=== PATIENT | female | born 1945 | race Caucasian/White ===

== ENCOUNTER 2017-07-18 09:56 | Emergency (ER) | payer MEDICARE, OTHER ==
[~2017-07-18] VITALS: Ht 165.1 cm; Wt 100.2 kg
[~2017-07-18 09:56] MED LIST: ALBU90OI6 INH; ATEN50; ATEN50 PO; BUDE6HFA; BUTONI; CONEST.9; DEXA4 PO; HYDCHL25 PO; Klor-Con 1010 MEQ PO; OMEP20ER; OMEP20ER PO; OXYC5; PARO20 PO; PREG25 PO; PROM25 PO; Prinivil10 MG PO; RANI150; SIMV10; TIOT18; Zofran8 MG PO
[2017-07-18 11:01] LABS: Hematocrit 46.5 % (33.0-51.0); Hemoglobin 15.5 g/dL (11.5-16.0); Mean Corpuscular HGB 30.8 pg (26.0-34.0); Mean Corpuscular HGB Conc 33.3 g/dL (31.5-36.5); Mean Corpuscular Volume 92 fL (80-100); Mean Platelet Volume 9.9 fL (9.1-12.4); Platelet Count 204 K/mm3 (150-400); RDW Coefficient Variation 12.4 % (11.7-14.2); RDW Standard Deviation 42.2 fL (35.1-46.3); Red Blood Cell Count 5.04 M/mm3 (3.80-5.20); White Blood Cell Count 4.24 K/mm3 (4.00-11.30)
[2017-07-18 11:13] LABS: Bun/Creatinine Ratio 19.1 (12.0-20.0); Calcium, Blood 8.8 mg/dL (8.5-10.1); Potassium, Blood 3.1 mmol/L (3.5-5.5)
[2017-07-18] MEDS ORDERED: Zithromax250 MG PO (11:40)
[2017-07-18] MEDS ORDERED: Prednisone20 MG PO (11:40)
[2017-07-18 11:41] LABS: BAND PERCENT MAN 1 % (0-8); BASOPHILS ABSOLUTE MAN 0.04 K/mm3 (0.00-0.23); BASOPHILS PERCENT MAN 1 % (0-2); EOSINOPHILS PERCENT MAN 0 % (0-6); LYMPHOCYTES % ATYPICAL MANUAL 3 % (0-0); LYMPHOCYTES ABSOLUTE MAN 1.06 K/mm3 (0.84-5.20); LYMPHOCYTES PERCENT MAN 22 % (21-46); MONOCYTES ABSOLUTE MAN 0.29 K/mm3 (0.16-1.47); MONOCYTES PERCENT MAN 7 % (4-13); NEUTROPHILS ABSOLUTE MAN 2.84 K/mm3 (1.96-9.15); SEG NEUTROPHILS PERCENT MAN 66 % (41-73); TOTAL CELLS COUNTED 100
== END 2017-07-18 12:18 | disposition home or self-care (01) ==
LOC: ER 09:56
PROVIDERS: Emergency Medicine
DX: J40 Bronchitis, not specified as acute or chronic (principal); I10 Essential (primary) hypertension; Z88.5 Allergy status to narcotic agent; Z79.899 Other long term (current) drug therapy
CPT/HCPCS: 36415; 71046; 80048; 85025; 93005; 93010; 94640; 96374; 99283; J2930

== ENCOUNTER → 2017-07-23 | Outpatient (CLI) | payer MEDICARE, OTHER ==
[~2017-07-23] MED LIST changes: +Prednisone20 MG PO; +Zithromax250 MG PO
[2017-07-23 17:38] LABS: U Amphetamine Screen Not Detected; U Barbituate Screen Not Detected; U Benzodiazapine Screen Not Detected; U Buprenorphine Screen Not Detected; U Cannabinoids Screen Not Detected; U Cocaine Screen Not Detected; U Methadone Screen Not Detected; U Methamphetamine Screen Not Detected; U Opiates Screen Not Detected; U Oxycodone Screen DETECTED; U Phencyclidine Screen Not Detected; U Propoxyphene Screen Not Detected
== END ==
LOC: LAB SHORT 17:14 → LAB 17:14
PROVIDERS: Internal Medicine
DX: Z51.81 Encounter for therapeutic drug level monitoring (principal); Z79.899 Other long term (current) drug therapy
CPT/HCPCS: G0480

== ENCOUNTER → 2018-01-22 | Outpatient (CLI) | payer MEDICARE, OTHER ==
[2018-01-22 18:42] LABS: U Amphetamine Screen Not Detected; U Barbituate Screen Not Detected; U Benzodiazapine Screen Not Detected; U Buprenorphine Screen Not Detected; U Cannabinoids Screen Not Detected; U Cocaine Screen Not Detected; U Methadone Screen Not Detected; U Methamphetamine Screen Not Detected; U Opiates Screen Not Detected; U Oxycodone Screen Not Detected; U Phencyclidine Screen Not Detected; U Propoxyphene Screen Not Detected
== END | disposition home or self-care (01) ==
LOC: LAB SHORT 14:15
PROVIDERS: Internal Medicine
DX: Z51.81 Encounter for therapeutic drug level monitoring (principal); Z79.899 Other long term (current) drug therapy

== ENCOUNTER 2018-09-24 10:13 | Day surgery (SDC) | payer MEDICARE, OTHER ==
[~2018-09-24] VITALS: Ht 165.1 cm; Wt 94.1 kg
[~2018-09-24 10:13] MED LIST changes: +ALBU90OI61
[2018-09-24] MEDS ORDERED: POTCHL10ER (11:02)
[2018-09-24] MEDS ORDERED: ALPR1 (11:03)
[2018-09-24] MEDS ORDERED: FURO40 (11:03)
[2018-09-24] MEDS ORDERED: ATEN25 (11:04)
[2018-09-24] MEDS ORDERED: PANT40 (11:04)
[2018-09-24] MEDS ORDERED: THERA1 EACH (11:05)
[2018-09-24] MEDS ORDERED: CHOL10002 (11:05)
[2018-09-24] MEDS ORDERED: TIOT18 (11:05)
[2018-09-24] MEDS ORDERED: BUDE6HFA (11:05)
--- NOTE | 2018-09-24 13:03 | NUR ---
09/24/18 Wisam Gonzales A YELLOW UPPER ENDOSCOPE WAS USED #[id number]. BITE BLOCK WAS PLACED IN PT'S MOUTH, AND THE PT WAS MONITORED. [address] LOPEZ DURING THE PROCEDURE AND WAS DISCONTINUED AT THE END.
== END 2018-09-24 13:33 | disposition home or self-care (01) ==
LOC: ORSCSDS 10:13
PROVIDERS: Surgery
PROC: 0JPT0WZ Removal of Totally Implantable Vascular Access Device from Trunk Subcutaneous Tissue and Fascia, Open Approach (ICD-10-PCS; principal; 2018-09-24 12:00)
PROC: 0DB58ZX Excision of Esophagus, Via Natural or Artificial Opening Endoscopic, Diagnostic (ICD-10-PCS; principal; 2018-09-24 12:00)
PROC: 0DB68ZX Excision of Stomach, Via Natural or Artificial Opening Endoscopic, Diagnostic (ICD-10-PCS; principal; 2018-09-24 12:00)
DX: K22.70 Barrett's esophagus without dysplasia (principal); Z45.2 Encounter for adjustment and management of vascular access device; I10 Essential (primary) hypertension; J44.9 Chronic obstructive pulmonary disease, unspecified; Z99.81 Dependence on supplemental oxygen; K21.9 Gastro-esophageal reflux disease without esophagitis; M79.7 Fibromyalgia; Z79.899 Other long term (current) drug therapy
CPT/HCPCS: 88305; 88342; J0690; J2250; J2704; J3010; J7120

== ENCOUNTER → 2019-04-16 | Outpatient (CLI) | payer MEDICARE, OTHER ==
[~2019-04-16] MED LIST changes: +ALPR1; +ATEN25; +CHOL10002; +FURO40; +PANT40; +POTCHL10ER; +THERA1 EACH
[2019-04-16 14:04] LABS: U Amphetamine Screen Not Detected; U Barbituate Screen Not Detected; U Benzodiazapine Screen Not Detected; U Buprenorphine Screen Not Detected; U Cannabinoids Screen Not Detected; U Cocaine Screen Not Detected; U Methadone Screen Not Detected; U Methamphetamine Screen Not Detected; U Opiates Screen DETECTED; U Oxycodone Screen Not Detected; U Phencyclidine Screen Not Detected; U Propoxyphene Screen Not Detected
== END ==
LOC: LAB SHORT 12:40 → LAB 12:40
PROVIDERS: Nurse Practitioner Family
DX: R30.0 Dysuria (principal); Z79.899 Other long term (current) drug therapy
CPT/HCPCS: 87077; 87086; 87186

== ENCOUNTER → 2020-02-02 | Outpatient (CLI) | payer MEDICARE, OTHER | END | disposition home or self-care (01) | LOC: LAB 13:30 → LAB SHORT 13:30 | DX: N30.01 Acute cystitis with hematuria (principal) | CPT/HCPCS: 87086 ==

== ENCOUNTER → 2020-08-04 | Outpatient (CLI) | payer MEDICARE, OTHER | END | disposition home or self-care (01) | LOC: LAB SHORT 18:50 → LAB 18:50 | DX: N30.00 Acute cystitis without hematuria (principal) | CPT/HCPCS: 87086 ==

== ENCOUNTER 2022-05-26 07:18 | Inpatient (IN) | payer MEDICARE, OTHER ==
[~2022-05-26] VITALS: Ht 165.1 cm; Wt 114.8 kg
[~2022-05-26 07:18] MED LIST changes: -FURO40; +FURO40 PO; -PANT40; +PANT40 PO
[2022-05-26] MEDS ORDERED: [UNRECOGNIZED DRUG - OTHER] (07:33)
[2022-05-26] MEDS ORDERED: BREZTRI AEROS10.7 GM INH (07:38)
[2022-05-26] MEDS ORDERED: Flovent 44 mc10.6 GM INH (07:40)
[2022-05-26 08:38] LABS: BASOPHILS ABSOLUTE AUTO 0.03 K/mm3 (0.00-0.23); BASOPHILS PERCENT AUTO 0 % (0-2); EOSINOPHILS ABSOLUTE AUTO 0.14 K/mm3 (0.00-0.68); EOSINOPHILS PERCENT AUTO 2 % (0-6); Hematocrit 42.5 % (33.0-51.0); Hemoglobin 13.5 g/dL (11.5-16.0); IMMATURE GRAN ABSOLUTE AUTO 0.04 K/mm3 (0.00-0.10); IMMATURE GRAN PERCENT AUTO 0 % (0-1); LYMPHOCYTES PERCENT AUTO 15 % (21-46); MONOCYTES ABSOLUTE AUTO 0.42 K/mm3 (0.16-1.47); MONOCYTES PERCENT AUTO 5 % (4-13); Mean Corpuscular HGB 30.1 pg (26.0-34.0); Mean Corpuscular HGB Conc 31.8 g/dL (31.5-36.5); Mean Corpuscular Volume 95 fL (80-100); Mean Platelet Volume 10.1 fL (9.1-12.4); NEUTROPHILS ABSOLUTE AUTO 7.08 K/mm3 (1.96-9.15); NEUTROPHILS PERCENT AUTO 78 % (41-73); Platelet Count 292 K/mm3 (150-400); RDW Coefficient Variation 12.3 % (11.7-14.2); Red Blood Cell Count 4.48 M/mm3 (3.80-5.20); White Blood Cell Count 9.11 K/mm3 (4.00-11.30)
[2022-05-26 08:56] LABS: Albumin, Blood 3.2 g/dL (3.4-5.0); Albumin/Globulin Ratio 0.7 (0.8-1.8); Bilirubin, Total 0.4 mg/dL (0.1-1.0); Bun/Creatinine Ratio 22.3 (12.0-20.0); Calcium, Blood 9.5 mg/dL (8.5-10.1); Creatinine, Blood 0.94 mg/dL (0.40-1.00); Globulin, Blood 4.3 g/dL (2.2-4.0); Potassium, Blood 3.8 mmol/L (3.5-5.5); Total Protein, Blood 7.5 g/dL (6.4-8.2)
--- NOTE | 2022-05-26 19:34 | NUR ---
SHIFT SUMMARY PTN ER ADMIT, ARRIVED 1430. REPORT RECEIVED FROM SHANIQUE IN ER. PTN CAME IN FOR SOB AND SWELLING IN HER LEGS. TREAT PER ORDERS. CONTINUE TO MONITOR.
[2022-05-27 00:36] LABS: Hematocrit 40.6 % (33.0-51.0); Mean Corpuscular HGB 30.1 pg (26.0-34.0); Mean Corpuscular Volume 94 fL (80-100); Mean Platelet Volume 9.7 fL (9.1-12.4); Platelet Count 288 K/mm3 (150-400); RDW Coefficient Variation 12.3 % (11.7-14.2); RDW Standard Deviation 43.1 fL (35.1-46.3); Red Blood Cell Count 4.32 M/mm3 (3.80-5.20); White Blood Cell Count 9.68 K/mm3 (4.00-11.30)
[2022-05-27 00:51] LABS: Bun/Creatinine Ratio 20.2 (12.0-20.0); Calcium, Blood 9.4 mg/dL (8.5-10.1); Creatinine, Blood 1.24 mg/dL (0.40-1.00); Magnesium, Blood 2.2 mg/dL (1.6-2.4); Phosphorus, Blood 3.5 mg/dL (2.5-4.9); Potassium, Blood 3.3 mmol/L (3.5-5.5)
--- NOTE | 2022-05-27 06:00 | NUR ---
END OF SHIFT NURSING REPORT - PM Patient is a 76 y/o female admitted for Acute and chronic respiratory failure after presenting to the ED with SOB x2 days and hypoxia. She has COPD and dependent on oxygen 4LNC. She is AOX4, states feeling anxious with hospitalization as her father d/t complications of COPD in the hospital. Medicated with PRN Xanax as ordered. On Telemetry and running Sinus Tach in the 110-120's. Using walker to ambulate around room d/t new onset of deconditioning. No acute events overnight.
--- NOTE | 2022-05-27 09:00 | NUR ---
pt laying in bed awake a/ox3, pleasant and cooperative with care, follows commads well, denies pain, states she's doing ok and slept well last night but is still very tired, lungs are dim t/o, no cough noted, hrr, tele in place running st in the one teens, piv to right wrist, 20g, site clear and patent, btx4, abd flat soft nontender, voids without diff via bsc, skin c/w/d, uses a walker to ambulate, john, call light in reach.
--- NOTE | 2022-05-27 10:32 | NUR ---
up to recliner to sleep as bed is uncomfortable to pt. call light in reach.
--- NOTE | 2022-05-27 18:08 | NUR ---
pt sat up in recliner most of the day, she dozed half of the day, no acute changes or needs this shift, call light in reach.
[2022-05-28 06:11] LABS: Albumin, Blood 3.3 g/dL (3.4-5.0); Anion Gap 2 mmol/L (6-16); Blood Urea Nitrogen 28 mg/dL (8-24); Bun/Creatinine Ratio 24.1 (12.0-20.0); CO2, Blood 40 mmol/L (21-32); Chloride, Blood 95 mmol/L (98-108); Creatinine, Blood 1.16 mg/dL (0.40-1.00); Glomerular Filtration Rate 49 (60-); Glucose, Blood 171 mg/dL (70-99); Phosphorus, Blood 4.5 mg/dL (2.5-4.9); Potassium, Blood 4.9 mmol/L (3.5-5.5); Sodium, Blood 137 mmol/L (136-145)
--- NOTE | 2022-05-28 18:50 | NUR ---
SHIFT SUMMARY PT A&OX4 AND IN PLEASENT MOOD T/O SHIFT. TOLERATING PO INTAKE WELL. 2L HUMIDIFIED NC. CALL LIGHT W/IN REACH. IND IN ROOM. VISITOR IN DURING VISITING HOURS. TELE SR @ 54.
[2022-05-29 05:29] LABS: Anion Gap 4 mmol/L (6-16); Blood Urea Nitrogen 25 mg/dL (8-24); Bun/Creatinine Ratio 25.8 (12.0-20.0); CO2, Blood 36 mmol/L (21-32); Calcium, Blood 9.1 mg/dL (8.5-10.1); Chloride, Blood 98 mmol/L (98-108); Creatinine, Blood 0.97 mg/dL (0.40-1.00); Glomerular Filtration Rate 61 (60-); Glucose, Blood 138 mg/dL (70-99); Phosphorus, Blood 3.6 mg/dL (2.5-4.9); Potassium, Blood 3.3 mmol/L (3.5-5.5); Sodium, Blood 138 mmol/L (136-145)
[2022-05-29] MEDS ORDERED: ALBU90OI INH (12:07)
[2022-05-29] MEDS ORDERED: ATEN25 PO (12:07)
[2022-05-29] MEDS ORDERED: FURO40 PO (12:08)
[2022-05-29] MEDS ORDERED: POTA10T PO (12:09)
--- NOTE | 2022-05-29 14:09 | NUR ---
PATIENT DISCHARGED TO HOME ACCOMPNAIED BY A FRIEND. IV SALINE LOCK AND TELEMETRY REMOVED WITHOUT INCIDENT. VERBALIZED UNDERSTANDING OF D/C INSTRUCTIONS. OFF UNIT VIA W/C AT 1310. NO PERSONAL BELONGINGS LEFT BEHIND IN ROOM.
== END 2022-05-29 13:15 | disposition home health service (06) | DRG 291 ==
LOC: ER 07:18 → ERHOLD 11:16 → MEDS 14:25
PROVIDERS: Emergency Medicine; ADMIT Internal Medicine
DX: I11.0 Hypertensive heart disease with heart failure (principal); I50.31 Acute diastolic (congestive) heart failure; J96.21 Acute and chronic respiratory failure with hypoxia; N17.9 Acute kidney failure, unspecified; Z68.41 Body mass index [BMI] 40.0-44.9, adult; J44.9 Chronic obstructive pulmonary disease, unspecified; F32.A Depression, unspecified; Z66 Do not resuscitate; F41.9 Anxiety disorder, unspecified; I48.0 Paroxysmal atrial fibrillation; E87.6 Hypokalemia; G47.00 Insomnia, unspecified; E66.01 Morbid (severe) obesity due to excess calories; K21.9 Gastro-esophageal reflux disease without esophagitis; K22.70 Barrett's esophagus without dysplasia; M79.7 Fibromyalgia; G43.909 Migraine, unspecified, not intractable, without status migrainosus; Z85.118 Personal history of other malignant neoplasm of bronchus and lung; Z98.890 Other specified postprocedural states; Z92.21 Personal history of antineoplastic chemotherapy; Z92.3 Personal history of irradiation; Z99.81 Dependence on supplemental oxygen; Z23 Encounter for immunization; Z88.5 Allergy status to narcotic agent; Z88.8 Allergy status to other drugs, medicaments and biological substances; Z79.891 Long term (current) use of opiate analgesic; Z79.51 Long term (current) use of inhaled steroids; Z79.899 Other long term (current) drug therapy; Z79.01 Long term (current) use of anticoagulants; Z90.710 Acquired absence of both cervix and uterus; Z90.49 Acquired absence of other specified parts of digestive tract; Z90.722 Acquired absence of ovaries, bilateral; Z98.49 Cataract extraction status, unspecified eye; Z79.52 Long term (current) use of systemic steroids; Z87.891 Personal history of nicotine dependence
CPT/HCPCS: 36415; 71045; 80048; 80053; 80069; 83735; 83880; 84100; 84443; 84484; 85025; 85027; 90686; 93005; 93010; 93306; 94640; 94664; 94760; 96374; 99285-25; A9270; C9113; J1650; J1940

== ENCOUNTER 2024-01-01 11:20 | Inpatient (IN) | payer MEDICARE, OTHER ==
[~2024-01-01] VITALS: Ht 165.1 cm; Wt 112.5 kg
[~2024-01-01 11:20] MED LIST changes: +ALBU90OI INH; +ATEN25 PO; +BREZTRI AEROS10.7 GM INH; +Flovent 44 mc10.6 GM INH; +POTA10T PO; +[UNRECOGNIZED DRUG - OTHER]
[2024-01-01 12:16] LABS: BASOPHILS ABSOLUTE AUTO 0.05 K/mm3 (0.00-0.23); BASOPHILS PERCENT AUTO 1 % (0-2); EOSINOPHILS ABSOLUTE AUTO 0.12 K/mm3 (0.00-0.68); EOSINOPHILS PERCENT AUTO 1 % (0-6); Hematocrit 37.5 % (33.0-51.0); Hemoglobin 11.6 g/dL (11.5-16.0); IMMATURE GRAN ABSOLUTE AUTO 0.03 K/mm3 (0.00-0.10); IMMATURE GRAN PERCENT AUTO 0 % (0-1); LYMPHOCYTES ABSOLUTE AUTO 1.21 K/mm3 (0.84-5.20); LYMPHOCYTES PERCENT AUTO 13 % (21-46); MONOCYTES ABSOLUTE AUTO 0.49 K/mm3 (0.16-1.47); MONOCYTES PERCENT AUTO 5 % (4-13); Mean Corpuscular HGB 28.6 pg (26.0-34.0); Mean Corpuscular HGB Conc 30.9 g/dL (31.5-36.5); Mean Corpuscular Volume 92 fL (80-100); Mean Platelet Volume 9.5 fL (9.1-12.4); NEUTROPHILS ABSOLUTE AUTO 7.33 K/mm3 (1.96-9.15); NEUTROPHILS PERCENT AUTO 80 % (41-73); Platelet Count 328 K/mm3 (150-400); RDW Coefficient Variation 12.7 % (11.7-14.2); Red Blood Cell Count 4.06 M/mm3 (3.80-5.20); White Blood Cell Count 9.23 K/mm3 (4.00-11.30)
[2024-01-01 12:33] LABS: Albumin/Globulin Ratio 0.8 (0.8-1.8); Bilirubin, Total 0.3 mg/dL (0.1-1.0); Bun/Creatinine Ratio 16.2 (12.0-20.0); Creatinine, Blood 0.93 mg/dL (0.40-1.00); Globulin, Blood 3.7 g/dL (2.2-4.0); Potassium, Blood 3.4 mmol/L (3.5-5.5); Total Protein, Blood 6.7 g/dL (6.4-8.2)
[2024-01-01] MEDS ORDERED: Ipratropium/Albuterol SulF 2.5-0.5MG/3 ML Amp INH ONE (12:40)
[2024-01-01] MEDS ORDERED: Magnesium Sulf 2 GM/Water 50ML 50 ML IV ONE (12:45)
[2024-01-01] MEDS ORDERED: Potassium Chloride 20 MEQ/15 ML UDC PO ONE (12:50)
[2024-01-01] MEDS ORDERED: Mag Hydrox/AL Hydrox/Simeth 30 ML UDC PO ONE (13:40)
[2024-01-01] MEDS ORDERED: Famotidine 10 MG/ML 2ML Vial IV ONE (13:40)
[2024-01-01 14:00] LABS: Influenza A, PCR NEGATIVE (NEGATIVE); Influenza B, PCR NEGATIVE (NEGATIVE); Resp Syncytial Virus, PCR NEGATIVE (NEGATIVE); SARS-Cov-2 (COVID-19) PCR, MMC NEGATIVE (NEGATIVE)
[2024-01-01] MEDS ORDERED: Furosemide 10 MG/ML 10ML Vial IV ONE (15:00)
[2024-01-01] MEDS ORDERED: Zolpidem Tartrate 10 MG Tab PO PRN (15:35)
[2024-01-01] MEDS ORDERED: Prochlorperazine Edisylate 10 mg Vial IV PRN (15:40)
[2024-01-01] MEDS ORDERED: FLU VACC TS2024-25(6MOS UP)/PF 45 MCG/0.5 ML SYRINGE IM ONE ×2 (15:40→21:00)
[2024-01-01 16:46] LABS: Free Thyroxine 0.97 ng/dL (0.70-1.60)
[2024-01-01 16:48] LABS: Thyroid Stimulating Hormone 2.31 uIU/mL (0.360-4.800)
[2024-01-01] MEDS ORDERED: Potassium Chloride 20 MEQ TabCR PO SCH (17:00)
[2024-01-01] MEDS ORDERED: Albuterol HFA200 ACT/6.7 GM INH INH PRN (17:10)
[2024-01-01] MEDS ORDERED: Misc. Inhaler INH SCH (17:10)
[2024-01-01 17:30] VITALS: BP 139/74
[2024-01-01] MEDS ORDERED: PARoxetine HCl 20 MG Tab PO SCH (18:00)
[2024-01-01] MEDS ORDERED: Furosemide 10 MG/ML 4ML Vial IV SCH (18:00)
--- NOTE | 2024-01-01 18:42 | NUR ---
TRANSFER NOTE: PT ARRIVED @~1730 AOX4 AND ON 4.5L OXYGEN VIA NC. ABLE TO ANSWER QUESTIONS AND TRANSFER INDEPENDENTALLY. EDEMA IN THE LOWER EX 2+ BILATERALLY. MILD CHRONIC BACK PAIN REPORTED. LUNGS HAVE SOME EXPIRATORY WHEEZE IN THE RIGHT SIDE, LEFT SIDE IS CLEAR. PT ORIENTED TO ROOM AND TAUGHT HOW TO USE PHONE. BED IN LOWEST POSITION AND CALL LIGHT IS IN REACH. CONTINUING CARE.
[2024-01-01 19:29] VITALS: BP 147/82
[2024-01-01] MEDS ORDERED: Acetaminophen 500 MG Tab PO PRN (20:25)
[2024-01-01] MEDS ORDERED: Sennosides 8.6 MG Tab PO SCH (21:00)
[2024-01-01] MEDS ORDERED: Famotidine 20 MG Tab PO SCH (21:00)
[2024-01-02 04:14] VITALS: BP 143/74
[2024-01-02 06:25] LABS: Base Excess Venous 17.1 mmol/L; PCO2 Venous 50.5 mmHg (38-42); pH Blood Venous 7.51 (7.34-7.37)
--- NOTE | 2024-01-02 06:45 | NUR ---
SHIFT SUMMARY: Pt admitted for diastolic CHF and is a DNR. is alert and able to make needs known. ADLs have been IND. was given APAP x1 for pain. Sleep study was done on this shift.
[2024-01-02 07:21] LABS: Bun/Creatinine Ratio 15.4 (12.0-20.0); Calcium, Blood 9.6 mg/dL (8.5-10.1); Creatinine, Blood 0.91 mg/dL (0.40-1.00); Magnesium, Blood 2.6 mg/dL (1.6-2.4); Potassium, Blood 3.5 mmol/L (3.5-5.5)
[2024-01-02 07:32] VITALS: BP 163/80
[2024-01-02 08:50] VITALS: BP 152/83
[2024-01-02] MEDS ORDERED: Enoxaparin 40 MG/0.4 ML SYR SC SCH (09:00)
[2024-01-02] MEDS ORDERED: Empagliflozin 10 MG TAB PO SCH (09:00)
[2024-01-02] MEDS ORDERED: Atenolol 25 MG Tab PO SCH (09:00)
[2024-01-02] MEDS ORDERED: B-12500 MC2 PO (10:46)
[2024-01-02] MEDS ORDERED: ACET325 PO (10:46)
--- NOTE | 2024-01-02 11:22 | NUR ---
Spiritual care visit conducted. Patient is lying in bed and resting but easily awakens to the sound of her name. She tells me about her fears when she is struggling to breathe, about her medical problems and the medical plan of care. She also explains about her [employer] beliefs that are held deeply even though she is not a "scientologist goer." She speaks of her strong support from friends and her son and about the deaths of both of her husbands. I normalize her fears and feelings, reinforce helpful attitudes and provide grief support, therapeutic listening and prayer. Patient responded well and showed signs of an elevated mood and increased peace. I will continue to remain available
[2024-01-02 14:39] VITALS: BP 124/71
--- NOTE | 2024-01-02 17:00 | NUR ---
SHIFT NOTE: PT A/OX4 ABLE TO MAKE HER NEEDS KNOWN. SHE IS SBA TO BS. SHE IS ON 2L NC WITH SPO2>90%. SHE REPORTS SOB WITH EXERTION. SHE TAKES HER MEDS WHOLE WITH WATER WITHOUT DIFFICULTY. PT REQUESTED TO SPEAK WITH PALLIATIVE CARE TODAY TO DISCUSS GOALS OF CARE. THIS RN NOTIFIED PALLIATIVE CARE. PT IS RESTING IN RECLINER WITH CALL LIGHT IN REACH. DENIES NEEDS AT THIS TIME. REPORT GIVEN TO RN
[2024-01-02 19:31] VITALS: BP 121/75
[2024-01-03 05:05] VITALS: BP 132/77
[2024-01-03 05:56] LABS: Bun/Creatinine Ratio 17.4 (12.0-20.0); Calcium, Blood 10.5 mg/dL (8.5-10.1); Creatinine, Blood 1.21 mg/dL (0.40-1.00); Potassium, Blood 3.3 mmol/L (3.5-5.5)
[2024-01-03 07:40] VITALS: BP 121/66
[2024-01-03] MEDS ORDERED: Potassium Chloride 20 MEQ TabCR PO SCH (09:00)
[2024-01-03] MEDS ORDERED: Spironolactone 25 MG Tab PO SCH (09:00)
[2024-01-03] MEDS ORDERED: Empagliflozin 25 MG TAB PO SCH (09:00)
[2024-01-03] MEDS ORDERED: POTCHL20ER PO (13:12)
[2024-01-03] MEDS ORDERED: JARDIANCE25 MG PO (13:12)
[2024-01-03] MEDS ORDERED: SPIR25 PO (13:13)
[2024-01-03] MEDS ORDERED: TORSE20 PO (13:13)
--- NOTE | 2024-01-03 15:51 | NUR ---
PT AWAKE DURING SHIFT REPORT, SITTING IN RECLINER AT BS. PT SLEPT IN RECLINER ALL NIGHT, STATING THAT SHE SLEEPS IN RECLINER AT HOME WELL. PT WANTING TO GO TODAY AND WAITING FOR DR HULL TO MAKE ROUNDS. PT ABLE TO D/C TO HOME THIS AFTERNOON. NEW MEDICATIONS FAXED TO [facility] PER PT REQUEST. D/C INSTRUCTIONS REVIEWED WITH PT; VERBALIZED UNDERSTANDING. PT'S FRIEND HERE TO TAKE PT HOME. 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 ALL BELONGINGS GATHERED AND TAKEN BY FRIEND.
== END 2024-01-03 14:49 | disposition home health service (06) | DRG 291 ==
LOC: ER 11:20 → MEDS 15:34
PROVIDERS: Student in an Organized Health Care Education/Training Program; ADMIT Internal Medicine
DX: I11.0 Hypertensive heart disease with heart failure (principal); I50.33 Acute on chronic diastolic (congestive) heart failure; J96.21 Acute and chronic respiratory failure with hypoxia; J96.22 Acute and chronic respiratory failure with hypercapnia; Z68.41 Body mass index [BMI] 40.0-44.9, adult; Z66 Do not resuscitate; Z23 Encounter for immunization; Z88.5 Allergy status to narcotic agent; Z88.8 Allergy status to other drugs, medicaments and biological substances; Z79.899 Other long term (current) drug therapy; Z87.891 Personal history of nicotine dependence; Z85.118 Personal history of other malignant neoplasm of bronchus and lung; J44.9 Chronic obstructive pulmonary disease, unspecified; E87.6 Hypokalemia; E66.01 Morbid (severe) obesity due to excess calories; E11.9 Type 2 diabetes mellitus without complications; I34.81 Nonrheumatic mitral (valve) annulus calcification; F41.9 Anxiety disorder, unspecified; F32.A Depression, unspecified; G43.909 Migraine, unspecified, not intractable, without status migrainosus; K21.9 Gastro-esophageal reflux disease without esophagitis; Z90.710 Acquired absence of both cervix and uterus; Z90.49 Acquired absence of other specified parts of digestive tract; Z98.49 Cataract extraction status, unspecified eye; Z92.21 Personal history of antineoplastic chemotherapy; Z92.3 Personal history of irradiation
CPT/HCPCS: 0241U; 36415; 71046; 80048; 80053; 82803; 82947; 83036; 83735; 83880; 84100; 84145; 84439; 84443; 84484; 85025; 90656; 93005; 93010; 93306; 94640; 94664; 94760; 94762; 96365; 96375; 99285-25; A9270; J0780; J1650; J1940; J3475